=== PATIENT | female | born 1970 | race Caucasian/White ===

== ENCOUNTER → 2018-02-12 | Outpatient (CLI) | payer OTHER ==
--- NOTE | 2018-02-12 17:07 | MR ---
EXAMINATION TYPE: MR lumbar spine wo con DATE OF EXAM: 02/12/2018 COMPARISON: 09/06/2015 from outside institution lumbar MRI HISTORY: Low back pain and numbness TECHNIQUE: Multiplanar, multisequence images of the lumbar spine were acquired. L1-L2: Normal disc appearance without desiccation. No herniation, protrusion or disc bulging. No ca nal stenosis is present. Foramina are patent bilaterally. L2-L3: Normal disc appearance without desiccation. No herniation, protrusion or disc bulging. No ca nal stenosis is present. Foramina are patent bilaterally. L3-L4: Normal disc appearance without desiccation. No herniation, protrusion or disc bulging. No ca nal stenosis is present. Foramina are patent bilaterally. L4-L5: Minimal posterior broad-based disc bulge shows a similar appearance. No significant central st enosis or foraminal encroachment. Mild facet arthropathy. L5-S1: Posterior disc herniation shows increased signal at the posterior aspect compatible with annul ar tear, there may be contact the proximal S1 nerve roots. No significant central stenosis. No forami nal encroachment. Facet arthropathy change present. Loss of disc signal is similar compatible disc de siccation. Lumbar segments are intact. No paraspinal masses are identified. Conus medullaris has a normal appe arance. Lumbar vertebral bodies show preserved height and alignment. Increased signal in the superior endplate of L1 likely represents hemangioma and is stable. IMPRESSION: Small posterior disc herniation L5-S1 similar to prior exam.
== END | disposition home or self-care (01) ==
LOC: RADMRIMAIN 06:08
PROVIDERS: ATTEND Psychiatry & Neurology Neurology
DX: M51.27 Other intervertebral disc displacement, lumbosacral region (principal)
CPT/HCPCS: 72148